=== PATIENT | female | born 1970 | race African-American/Black ===

== ENCOUNTER 2016-10-21 13:50 | Emergency (ER) | payer MEDICARE ==
--- NOTE | 2016-10-21 14:13 | ED Physician Chart ---
Chief Complaint/HPI - Patient Information Date Seen:: 10/21/16 Time Seen:: 14:12 Chief Complaint:: PAIN AND SWELLING IN BOTH FEET SINCE LAST NIGHT History of Present Illness:: This 46-year-old female presents with pain and swelling in both of her feet which started last evening. Swelling began one week ago holes both lower extremities. Week ago today the patient was admitted to [facility] for workup of acute chest pain. Workup was negative and she was discharged home. She has been given a cardiology referral to see a Dr. Sultana by her primary care physician Dr. allen. The patient has no chest pain at the present time but does have mild respiratory distress. Patient has no prior history of DVT. The patient is hypertensive and takes atenolol and lisinopril. She has not been taking her hydrochlorothiazide this past week. In addition the patient has had weeping from the area around her left ankle since last evening. Patient rates the pain as an 8/10 in severity with no alleviating or exacerbating factors. Patient feels that the pain is secondary to the swelling she is experiencing. The patient underwent a blood transfusion 6 days ago when her hemoglobin was in the 8 range. There was an incidental finding of gallstones on ultrasound of the abdomen. Allergies:: Allergies Allergy/AdvReac Type Severity Reaction Status Date / Time codeine Allergy Verified 10/21/16 14:12 Penicillins [PCN] Allergy Verified 10/21/16 14:12 Patient states that when she takes codeine she has an upset stomach with nausea and discomfort. More likely represents a side effect of the codeine rather than an allergic reaction. Review of Systems - Review of Systems General/Constitutional: No fever, No chills, No weakness, No diaphoresis, Edema , No loss of appetite Skin: Rash, No bruising, Other (enough fluid from the area around the lateral left ankle. Patient has also noted increased pigmentation and both ankles.) Head: No headache, No light-headedness Eyes: No loss of vision, No diplopia ENT: No earache, No sore throat, No tinnitus Neck: No neck pain, No swelling, No thyromegaly, No stiffness, No mass noted Pulmonary: SOB, Cough (patient has onset of a dry severe cough 2 months ago.), No sputum, No wheezing GI: No nausea, No vomiting, No diarrhea, No pain, No constipation, No hematemesis, Other (stools are black and tarry.) G/U: No dysuria, No frequency, No hematuria Saw Grinder: No vaginal discharge, Other (currently on her menstrual period.) Musculoskeletal: No back pain, No muscle pain, Other (pain in both feet.) Psychiatric: Prior psych history, Depression, No suicidal ideation, Other ( patient is on disability due to mental stress and has a diagnosis of schizo affective disorder and depression.) Hematopoietic: No bruising, No lymphadenopathy Allergic/Immuno: No urticaria, No angioedema Neurological: No syncope, No focal symptoms, No weakness, No paresthesia, No headache, No seizure, No dizziness, No confusion, No vertigo Family Medical History - Family Member Mother Ethnicity: Non- Living Status: Still Living Hx Family Hypertension: Yes Physical Exam - Physical Examination General/Constitutional: Awake, Well-developed, well-nourished, Alert, Non-toxic appearing, Ambulatory Other Gen/Cons comments:: Is in mild to moderate distress from the complained of pain in both her feet. Head: Atraumatic Eyes: Lids, conjuctiva normal, PERRL, EOMI Other Eyes comments:: Conjunctiva not pale. Other Skin comments:: There is increased pigmentation in both lower extremities at the level of the ankles and feet. There is no erythema in either lower extremity. No warmth in either lower extremity. No calf tenderness in the either lower extremity. Mild tenderness to palpation over the dorsum of the foot and medial and lateral ankles secondary to edema. ENMT: External ears, nose nl, Lips, teeth, gums nl, Oropharynx nl, Tonsils nl Neck: Full ROM w/o pain, No nuchal rigidity, No bruit, No mass, No stridor Other Neck comments:: Her neck is too thick to evaluate JVD. Respiratory: Nl effort/Exclusion Other Respiratory comments:: Patient has decreased breath sounds in both bases and I cannot appreciate any wheezing, rales or rhonchi. Cardio Vascular: RRR, No murmur, gallop, rubs, NL S1 S2 Other Cardio Vascular comments:: Adequate pulses all 4 extremities. The patient has +3 edema in both lower extremities in the pretibial region. GI: No tenderness/rebounding/guarding, No organomegaly, No hernia, Normal BS's Other GI comments:: Family distended secondary to either obesity or possible edema. : No CVA tenderness, No discharge Other comments:: Currently on her menses. Extremities: normal strength in all extremities Neuro/Psych: Alert/oriented, Normal sensory exam, Normal motor strength, Judgement/insight normal, Mood normal, Normal gait, No focal deficits Misc: Normal back, No paraspinal tenderness Labs/Radiology/EKG Results - Lab Results Results: Laboratory Results - last 24 hr 10/21/16 10/21/16 10/21/16 14:55 14:55 14:55 WBC 9.3 RBC 4.29 Hgb 9.4 L Hct 29.2 L MCV 68.0 L MCH 22.0 L MCHC Differential 32.3 RDW 23.0 H Plt Count 375 MPV 8.9 Neutrophils (Manual) 77 Lymphocytes 21 Monocytes 2 Nucleated RBCs 1.0 H Platelet Estimate ADEQUATE Polychromasia 1+ Anisocytosis 2+ Microcytosis 3+ RBC Morph Micro Appear ABNORMAL D-Dimer 303 Sodium 135 L Potassium 3.8 Chloride 104 Carbon Dioxide 26.8 Anion Gap 8.0 BUN 8 Creatinine 1.1 Est GFR ( Amer) > 60.0 Est GFR (Non-Af Amer) 56.8 BUN/Creatinine Ratio 7.3 Glucose 137 H Whole Bld Lactic Acid Calcium 9.6 Total Bilirubin 0.4 AST 16 ALT 15 Alkaline Phosphatase 92 Troponin I 0.01 B-Natriuretic Peptide 23.7 Total Protein 7.0 Albumin 3.9 Globulin 3.1 Albumin/Globulin Ratio 1.3 Serum , Qual 10/21/16 10/21/16 14:55 14:55 WBC RBC Hgb Hct MCV MCH MCHC Differential RDW Plt Count MPV Neutrophils (Manual) Lymphocytes Monocytes Nucleated RBCs Platelet Estimate Polychromasia Anisocytosis Microcytosis RBC Morph Micro Appear D-Dimer Sodium Potassium Chloride Carbon Dioxide Anion Gap BUN Creatinine Est GFR ( Amer) Est GFR (Non-Af Amer) BUN/Creatinine Ratio Glucose Whole Bld Lactic Acid 1.07 Calcium Total Bilirubin AST ALT Alkaline Phosphatase Troponin I B-Natriuretic Peptide Total Protein Albumin Globulin Albumin/Globulin Ratio Serum , Qual NEGATIVE The lab results showed no leukocytosis or left shift. Cardiac studies show a normal BNP and troponin level. The whole blood lactic acid is within the normal parameters. - Radiology Results Results: PA portable chest x-ray one view: There is borderline cardiomegaly. As a haziness in the left lower lung zones which could represent either a pleural effusion or atelectasis. No pulmonary edema. Thorax. He is started on widening. Impression: Borderline chest x-ray. Laboratory Tests 10/21/16 10/21/16 10/21/16 14:55 14:55 14:55 WBC 9.3 RBC 4.29 Hgb 9.4 L Hct 29.2 L MCV 68.0 L MCH 22.0 L MCHC Differential 32.3 RDW 23.0 H Plt Count 375 MPV 8.9 Neutrophils (Manual) 77 Lymphocytes 21 Monocytes 2 Nucleated RBCs 1.0 H Platelet Estimate ADEQUATE Polychromasia 1+ Anisocytosis 2+ Microcytosis 3+ RBC Morph Micro Appear ABNORMAL D-Dimer 303 Sodium 135 L Potassium 3.8 Chloride 104 Carbon Dioxide 26.8 Anion Gap 8.0 BUN 8 Creatinine 1.1 Est GFR ( Amer) > 60.0 Est GFR (Non-Af Amer) 56.8 BUN/Creatinine Ratio 7.3 Glucose 137 H Whole Bld Lactic Acid Calcium 9.6 Total Bilirubin 0.4 AST 16 ALT 15 Alkaline Phosphatase 92 Troponin I 0.01 B-Natriuretic Peptide 23.7 Total Protein 7.0 Albumin 3.9 Globulin 3.1 Albumin/Globulin Ratio 1.3 Serum , Qual 10/21/16 10/21/16 14:55 14:55 WBC RBC Hgb Hct MCV MCH MCHC Differential RDW Plt Count MPV Neutrophils (Manual) Lymphocytes Monocytes Nucleated RBCs Platelet Estimate Polychromasia Anisocytosis Microcytosis RBC Morph Micro Appear D-Dimer Sodium Potassium Chloride Carbon Dioxide Anion Gap BUN Creatinine Est GFR ( Amer) Est GFR (Non-Af Amer) BUN/Creatinine Ratio Glucose Whole Bld Lactic Acid 1.07 Calcium Total Bilirubin AST ALT Alkaline Phosphatase Troponin I B-Natriuretic Peptide Total Protein Albumin Globulin Albumin/Globulin Ratio Serum , Qual NEGATIVE ED Septic Shock - . Is Septic Shock (SBP<90, OR Lactate>4 mmol\L) present?: No Reassessment (Disposition) - Reassessment Reassessment Condition:: Improved - Patient Disposition Discharge/Transfer:: Home
[2016-10-21 15:05] LABS: HEMATOCRIT 29.2 % (35.0-45.0); HEMOGLOBIN 9.4 gm/dL (11.7-15.5); MEAN CORPUSCULAR HGB CONC 32.3 pg (28.0-36.0); MEAN PLATELET VOLUME 8.9 fl; PLATELET COUNT 375 Th/cmm (150-400); RED BLOOD COUNT 4.29 Mil/cmm (3.80-5.10); WHITE BLOOD COUNT 9.3 Th/cmm (4.8-10.8)
[2016-10-21] MEDS ORDERED: Morphine Sulfate 4 mg/mL 1mL Syr ONE (15:05)
[2016-10-21 15:20] LABS: BNP 23.7 pg/mL (5.0-100.0)
[2016-10-21 15:21] LABS: TROP I 0.01 ng/mL (0.01-0.05)
[2016-10-21 15:29] LABS: ALB/GLOB RATIO 1.3 (1.0-1.8); ALKALINE PHOSPHATASE 92 U/L (34-104); BILIRUBIN,TOTAL 0.4 mg/dL (0.3-1.0); BUN - UREA NITROGEN 8 mg/dL (7-25); BUN/CREATININE RATIO 7.3; CALCIUM SERUM 9.6 mg/dL (8.6-10.3); CARBON DIOXIDE 26.8 mEq/L (21.0-31.0); CHLORIDE 104 mEq/L (98-107); CREATININE - SERUM 1.1 mg/dL (0.6-1.2); GLUCOSE 137 mg/dL (70-105); POTASSIUM SERUM 3.8 mEq/L (3.5-5.1); SGOT 16 U/L (13-39); SGPT/ALT 15 U/L (7-52); SODIUM SERUM 135 mEq/L (136-145)
[2016-10-21 15:37] LABS: ANISOCYTOSIS 2+; MICROCYTOSIS 3+; NEUTROPHILS 77 % (40-80); PLATELET ESTIMATE ADEQUATE (NORMAL); POLYCHROMASIA 1+; TOTAL CELLS COUNTED 100
--- NOTE | 2016-10-22 10:39 | Diagnostic Imaging Report ---
Portable chest x-ray HISTORY: Lower extremity swelling, shortness of breath Heart size is difficult to assess with portable technique. No acute focal pulmonary processes. No evidence of pleural fluid. IMPRESSION: 1. No definite focal pulmonary processes
== END 2016-10-21 18:25 | disposition home or self-care (01) ==
LOC: ER 13:50
DX: R60.0 Localized edema (principal); Z88.0 Allergy status to penicillin; Z88.6 Allergy status to analgesic agent
CPT/HCPCS: 99285; 96374; 96375; 93005; 71010; 84484; 83880; 36415; 85379; 83605; 85007; 85027; 84703; 80053; 87040 ×2; J2405; J1940